=== PATIENT | male | born 1950 | race Two or more races ===

== ENCOUNTER 2019-07-13 07:51 | Outpatient (CLI) | payer OTHER | END 2019-07-13 08:10 | disposition home or self-care (01) | LOC: NUCLEAR 07:51 | DX: I65.23 Occlusion and stenosis of bilateral carotid arteries (principal); R89.8 Other abnormal findings in specimens from other organs, systems and tissues; I25.10 Atherosclerotic heart disease of native coronary artery without angina pectoris; R06.02 Shortness of breath | CPT/HCPCS: 93880; 78452; 93017; A9500 ==

== ENCOUNTER → 2019-08-29 | Outpatient (CLI) | payer OTHER | END | disposition home or self-care (01) | LOC: RAD 14:14 | PROVIDERS: ATTEND Internal Medicine Cardiovascular Disease | DX: R07.89 Other chest pain (principal); M15.8 Other polyosteoarthritis; R01.1 Cardiac murmur, unspecified; R06.02 Shortness of breath ==

== ENCOUNTER 2019-09-21 13:02 | Outpatient (CLI) | payer OTHER | END 2019-09-21 13:03 | disposition home or self-care (01) | LOC: RAD 13:02 | DX: M54.5 Low back pain (principal) ==

== ENCOUNTER 2019-10-12 07:42 | Outpatient (CLI) | payer OTHER | END 2019-10-12 07:53 | disposition home or self-care (01) | LOC: SONOGRAMA 07:42 → MAMO-SONO 07:45 → SONOGRAMA 07:53 | DX: I71.6 Thoracoabdominal aortic aneurysm, without rupture (principal); I71.9 Aortic aneurysm of unspecified site, without rupture ==

== ENCOUNTER 2020-07-14 09:29 | Outpatient (CLI) | payer OTHER | END 2020-07-14 09:38 | disposition home or self-care (01) | LOC: MRI 09:29 | DX: M47.812 Spondylosis without myelopathy or radiculopathy, cervical region (principal); M54.5 Low back pain | CPT/HCPCS: 72146 ==

== ENCOUNTER 2020-10-13 10:28 | Emergency (ER) | payer OTHER ==
[~2020-10-13] VITALS: Ht 177.8 cm; Wt 77.1 kg
[2020-10-13] MEDS ORDERED: KETO10TA2 PO (14:51)
[2020-10-13] MEDS ORDERED: ZITHROMAX TRI-500 MG PO (14:51)
== END 2020-10-13 15:20 | disposition home or self-care (01) ==
LOC: ER 10:28
DX: H92.02 Otalgia, left ear (principal); Z03.818 Encounter for observation for suspected exposure to other biological agents ruled out

== ENCOUNTER 2021-02-18 10:42 | Emergency (ER) | payer OTHER ==
[~2021-02-18] VITALS: Ht 177.8 cm; Wt 83.9 kg
[~2021-02-18 10:42] MED LIST: KETO10TA2 PO; ZITHROMAX TRI-500 MG PO
[2021-02-18] MEDS ORDERED: CHILDREN'S ASPI81 MG PO (10:55)
[2021-02-18] MEDS ORDERED: LIPITOR20 MG PO (10:55)
[2021-02-18] MEDS ORDERED: DICLOFENAC POTA50 MG PO (14:09)
== END 2021-02-18 14:24 ==
LOC: ER 10:42
DX: S93.492A Sprain of other ligament of left ankle, initial encounter (principal); S53.491A Other sprain of right elbow, initial encounter; X50.1XXA Overexertion from prolonged static or awkward postures, initial encounter; Y93.89 Activity, other specified; Y92.89 Other specified places as the place of occurrence of the external cause; Y99.8 Other external cause status

== ENCOUNTER 2022-04-14 09:23 | Outpatient (CLI) | payer OTHER ==
[~2022-04-14 09:23] MED LIST changes: +CHILDREN'S ASPI81 MG PO; +DICLOFENAC POTA50 MG PO; +LIPITOR20 MG PO
== END 2022-04-14 09:29 | disposition home or self-care (01) ==
LOC: SONOGRAMA 09:23 → EDBD 09:23 → SONOGRAMA 09:29
PROVIDERS: ATTEND General Practice
DX: N23 Unspecified renal colic (principal); N52.9 Male erectile dysfunction, unspecified